=== PATIENT | male | born 1960 ===

== ENCOUNTER 2024-12-08 11:44 | Day surgery (SDC) | payer OTHER ==
[~2024-12-08] VITALS: Ht 182.9 cm; Wt 80.7 kg
[~2024-12-08 11:44] MED LIST: Lactated Ringer's 1,000 ML IV ONE; propofoL 50 ML IV ONE
[2024-12-08] MEDS ORDERED: TADA10TA (13:07)
[2024-12-08] MEDS ORDERED: Lactated Ringer's 1,000 ML IV ONE (14:03)
== END 2024-12-08 15:18 | disposition home or self-care (01) ==
LOC: ORSCSDS 11:44
PROVIDERS: Specialist
PROC: 0DB58ZX Excision of Esophagus, Via Natural or Artificial Opening Endoscopic, Diagnostic (ICD-10-PCS; principal; 2024-12-08 14:15)
PROC: 0DB68ZX Excision of Stomach, Via Natural or Artificial Opening Endoscopic, Diagnostic (ICD-10-PCS; principal; 2024-12-08 14:15)
PROC: 0DBL8ZX Excision of Transverse Colon, Via Natural or Artificial Opening Endoscopic, Diagnostic (ICD-10-PCS; principal; 2024-12-08 14:15)
DX: K21.9 Gastro-esophageal reflux disease without esophagitis (principal); Z12.11 Encounter for screening for malignant neoplasm of colon; K63.5 Polyp of colon; K57.30 Diverticulosis of large intestine without perforation or abscess without bleeding; K44.9 Diaphragmatic hernia without obstruction or gangrene; K22.10 Ulcer of esophagus without bleeding; K64.8 Other hemorrhoids
CPT/HCPCS: 88305; 88342; J2704; J7120